=== PATIENT | female | born 1970 | race Caucasian/White ===

== ENCOUNTER → 2018-03-13 | Outpatient (CLI) | payer OTHER ==
[~2018-03-13] MED LIST: CETI10TA84 PO; ETOD400T PO; META1TAB22 PO; OMEP40CA PO; RXC5 PO; ULT50X PO
[2018-03-13 17:45] LABS: BASO % 0.5 %; BASO ABS # 0.03 K/uL (0-0.2); EOS % 2.3 %; EOS ABS # 0.15 K/uL (0-0.5); HEMATOCRIT 42.2 % (37-47); HEMOGLOBIN 14.1 g/dL (12.0-16.0); IG# 0.02 K/uL (0.00-0.02); LYMPH % 36.6 %; LYMPH ABS # 2.34 K/uL (1.2-3.4); MEAN CELL VOLUME 94.6 fL (80-100); MEAN CORPUSCULAR HEMOGLOBIN 31.6 pg (25-34); MEAN CORPUSCULAR HGB CONC 33.4 g/dl (32-36); MEAN PLATELET VOLUME 10.6 fL (7.4-10.4); MONO % 5.3 %; MONO ABS # 0.34 K/uL (0.11-0.59); NEUT ABS # 3.52 K/uL (1.4-6.5); PLATELET COUNT 200 K/uL (130-400); RED CELL DISTRIBUTION WIDTH CV 13.7 % (11.5-14.5); RED CELL DISTRIBUTION WIDTH SD 47.3 fL (36.4-46.3)
[2018-03-13 18:25] LABS: ALBUMIN 3.3 gm/dl (3.4-5.0); ALT/SGPT 42 U/L (12-78); AST/SGOT 37 U/L (15-37); BLOOD UREA NITROGEN 19 mg/dl (7-18); CALCIUM 8.6 mg/dl (8.5-10.1); CARBON DIOXIDE 26 mmol/L (21-32); CHOLESTEROL 213 mg/dl (0-200); CREATININE 0.73 mg/dl (0.60-1.20); GLUCOSE 82 mg/dl (70-99); POTASSIUM 3.4 mmol/L (3.5-5.1); SODIUM 144 mmol/L (136-145)
[2018-03-13 18:27] LABS: ALKALINE PHOSPHATASE 129 U/L (45-117); LDL CHOLESTEROL CALCULATED 126 mg/dl; TOTAL PROTEIN 6.5 gm/dl (6.4-8.2)
== END | disposition home or self-care (01) ==
LOC: C.LABMFLN 11:37
PROVIDERS: ATTEND Family Medicine
DX: D64.9 Anemia, unspecified (principal); E78.5 Hyperlipidemia, unspecified; G71.0 Muscular dystrophy

== ENCOUNTER → 2018-07-09 | Outpatient (CLI) | payer OTHER ==
[2018-07-09 18:15] LABS: ALBUMIN 3.5 gm/dl (3.4-5.0); ALKALINE PHOSPHATASE 101 U/L (45-117); ALT/SGPT 30 U/L (12-78); AST/SGOT 23 U/L (15-37); BLOOD UREA NITROGEN 14 mg/dl (7-18); CALCIUM 9.5 mg/dl (8.5-10.1); CARBON DIOXIDE 29 mmol/L (21-32); CREATININE 0.76 mg/dl (0.60-1.20); GLUCOSE 90 mg/dl (70-99); POTASSIUM 3.7 mmol/L (3.5-5.1); SODIUM 144 mmol/L (136-145); TOTAL PROTEIN 6.5 gm/dl (6.4-8.2)
== END | disposition home or self-care (01) ==
LOC: C.LABMFLN 11:29
PROVIDERS: ATTEND Family Medicine
DX: E87.6 Hypokalemia (principal)

== ENCOUNTER → 2018-07-13 | Outpatient (CLI) | payer OTHER ==
[2018-07-13 17:48] LABS: BASO % 0.4 %; BASO ABS # 0.02 K/uL (0-0.2); EOS % 0.2 %; EOS ABS # 0.01 K/uL (0-0.5); HEMATOCRIT 43.1 % (37-47); IG# 0.01 K/uL (0.00-0.02); LYMPH % 44.4 %; LYMPH ABS # 2.45 K/uL (1.2-3.4); MEAN CELL VOLUME 95.6 fL (80-100); MEAN CORPUSCULAR HGB CONC 32.5 g/dl (32-36); MEAN PLATELET VOLUME 11.4 fL (7.4-10.4); MONO % 0.5 %; MONO ABS # 0.03 K/uL (0.11-0.59); NEUT % 54.3 %; PLATELET COUNT 188 K/uL (130-400); RED CELL DISTRIBUTION WIDTH CV 13.2 % (11.5-14.5); RED CELL DISTRIBUTION WIDTH SD 45.8 fL (36.4-46.3); WHITE BLOOD COUNT 5.52 K/uL (4.8-10.8)
== END | disposition home or self-care (01) ==
LOC: C.LABMFLN 13:50
PROVIDERS: ATTEND Family Medicine
DX: R10.32 Left lower quadrant pain (principal); R00.2 Palpitations

== ENCOUNTER 2023-07-07 07:26 | Observation (INO) ==
--- NOTE | 2023-06-18 13:28 | PAT Medication Instructions ---
Medication Instructions Date of Service June 18, 2023 Home Medications Medication Instructions Recorded electric wheelchair #1 ea 01/14/22 walker with wheels, seat and brakes #1 ea 06/14/22 albuterol sulfate 90 mcg/actuation 2 inh inhalation Q6H PRN shortness 12/31/22 aerosol inhaler (ProAir HFA) of breath or wheezing #18 grams cetirizine 10 mg tablet 10 mg PO QAM #90 tabs 12/31/22 metaxalone 800 mg tablet 800 mg PO TID PRN muscle relaxer 12/31/22 #270 tabs omeprazole 40 mg capsule,delayed 40 mg PO QAM #90 caps 12/31/22 release magnesium 200 mg tablet 300 mg PO Q2D multivitamin 1 tab PO QAM potassium 99 mg tablet 99 mg PO QAM chlorpheniramine maleate 4 mg tablet (ChlorTabs) 4 mg PO Q6H cholecalciferol (vitamin D3) 25 mcg (1,000 unit) capsule 25 mcg PO QAM albuterol sulfate 90 mcg/actuation aerosol inhaler (ProAir HFA) 2 inh inhalation Q6H PRN cetirizine 10 mg tablet 10 mg PO QAM metaxalone 800 mg tablet 800 mg PO TID PRN omeprazole 40 mg capsule,delayed release 40 mg PO QAM celecoxib 200 mg capsule (Celebrex) 200 mg PO QAM ASK your surgeon for instructions celecoxib 200 mg capsule (Celebrex) 200 mg PO QAM DO NOT take the morning of surgery magnesium 200 mg tablet 300 mg PO Q2D multivitamin 1 tab PO QAM potassium 99 mg tablet 99 mg PO QAM chlorpheniramine maleate 4 mg tablet (ChlorTabs) 4 mg PO Q6H cholecalciferol (vitamin D3) 25 mcg (1,000 unit) capsule 25 mcg PO QAM cetirizine 10 mg tablet 10 mg PO QAM metaxalone 800 mg tablet 800 mg PO TID PRN Take morning of surgery With a small sip of water, OTHERWISE NOTHING TO EAT OR DRINK AFTER MIDNIGHT: albuterol sulfate 90 mcg/actuation aerosol inhaler (ProAir HFA) 2 inh inhalation Q6H PRN(use if needed; please bring with you to hospital day of surgery if possible) omeprazole 40 mg capsule,delayed release 40 mg PO QAM Take evening before surgery chlorpheniramine maleate 4 mg tablet (ChlorTabs) 4 mg PO Q6H albuterol sulfate 90 mcg/actuation aerosol inhaler (ProAir HFA) 2 inh inhalation Q6H PRN(if needed) metaxalone 800 mg tablet 800 mg PO TID PRN(if needed) Other Notes If you have any questions please call us at [phone] or [phone] or [phone] or [phone]
--- NOTE | 2023-06-25 12:35 | Anesthesiology Consultation ---
Date of Service June 25, 2023 Assessment & Plan (1) Encounter for pre-operative examination: - COVID screening: Per assessment on 06/25: No known COVID-19 positive contacts or current COVID-19 related symptoms. No recent Covid positive test result. - Cardiology visit (06/25/23): "..history myotonic dystrophy type 1, mosaic Rdz's syndrome, paroxysmal atrial fibrillation, and implantation of a loop recorder who presents to the clinic forpreoperative cardiovascular evaluation prior to cystoscopy, bilateral retrograde pyelogram, bilateral ureteroscopy, laser lithotripsy, stone basketing, possible ureteral dilation and bilateral ureteral stent placement on 07/07/[address] Quintero. She is currently stable and asymptomatic from a cardiovascular standpoint with no anginal symptoms. She has no evidence of CHF or significant valvular abnormality. Her heart rate and blood pressure are currently well controlled. Given this information, patient is at an acceptable risk to proceed with upcoming surgery without any additional cardiovascular testing or intervention." - Myotonic dystrophy, type 1: Patient concerned regarding anesthesia given history of myotonic dystrophy type 1. Indicates that there are specific recommendations to follow d/t this history- wants anesthesiologist flagged. Patient s/p Left ureteroscopy, laser litho (09/14/18): Grade view 2, MAC#3, ETT 7.0, atraumatic at [facility]. No issues noted per post-op anesthesia progress note. - Hypernatremia: Sodium borderline elevated on preop labs 06/25/23 at 146. Per chart review, does have known history of hypernatremia with fluctuating levels (most recent level improved from 04/20/23 which was 148). At anesthesiologist discretion DOS if updated level needed from their perspective. - Patient acceptable risk for given surgery pending evaluation DOS. Chart Review Chart Review: Patient seen in Pre Admission Testing Teaching & Discussion Pre-Anesthesia Teaching/Discussion Notes: Instructed NPO after midnight before surgery,except medications with 15 cc of water. Medication instructions provided according to the PAT guidelines. History Surgery Operation Date: 07/07/23 09:00 Proposed Procedures p Cystoscopy, Ureteronephroscopy, Retrograde Pyelogram, With Possible Ureteral Dilation, Laser Destruction or Extraction of the Stone, Insertion or Exchange of Stent Catheter-Bilateral(Bilateral) - Avery Quintero, DO Height/Weight Height: 5 ft 3 in Weight: 41.3 kg Allergies Allergy/AdvReac Type Severity Reaction Status Date / Time mold Allergy Unverified 06/25/23 09:56 Hay fever Allergy Uncoded 06/25/23 09:56 Medications Home Medications Medication Instructions Recorded Confirmed Last Taken multivitamin 1 tab PO QAM 08/24/18 06/25/23 09/13/18 09:00 potassium 99 mg tablet 99 mg PO QAM 08/24/18 06/25/23 09/13/18 09:00 chlorpheniramine maleate 4 mg 4 mg PO Q6H allergies 08/31/21 06/25/23 Unknown tablet (ChlorTabs) electric wheelchair #1 ea 01/14/22 06/12/23 Unknown walker with wheels, seat and brakes #1 ea 06/14/22 06/12/23 Unknown cholecalciferol (vitamin D3) 25 25 mcg PO QAM 08/30/22 06/25/23 Unknown mcg (1,000 unit) capsule albuterol sulfate 90 mcg/actuation 2 inh inhalation Q6H PRN shortness 12/31/22 06/25/23 Unknown aerosol inhaler (ProAir HFA) of breath or wheezing #18 grams cetirizine 10 mg tablet 10 mg PO QAM #90 tabs 12/31/22 06/25/23 Unknown metaxalone 800 mg tablet 800 mg PO TID PRN muscle relaxer 12/31/22 06/25/23 Unknown #270 tabs omeprazole 40 mg capsule,delayed 40 mg PO QAM #90 caps 12/31/22 06/25/23 Unknown release celecoxib 200 mg capsule (Celebrex) 200 mg PO QAM 06/17/23 06/25/23 Unknown magnesium 200 mg tablet 300 mg PO DIRECTED 06/25/23 06/25/23 Unknown Past Medical History Medical History Asthma First degree atrioventricular block Follows with Dr. Ross/SANDRINE GERD (gastroesophageal reflux disease) Implantable loop recorder present Prior 2020 Kidney stones Migraine Mosaic Rdz syndrome Myotonic dystrophy, type 1 Paroxysmal atrial fibrillation Follows with Dr. Ross/SANDRINE Prolongation of QRS complex on electrocardiography Spinal cord stimulator status Present, patient aware to bring remote DOS Exercise / Class Metabolic Activity III < 4 Walking/Shop/Light housework (walker/cane/wheelchair PRN) Past Family History Family History Father Asthma Aunt Cerebral embolism Migraines Mother Rheumatoid arthritis Other No pertinent family history Past Surgical History Surgical History History of adenoidectomy History of appendectomy History of bilateral tubal ligation History of esophagogastroduodenoscopy (EGD) History of hysterectomy (uterus and cervix only removed) History of lithotripsy Left ureteroscopy, laser litho (09/14/18): Grade view 2, MAC#3, ETT 7.0, atraumatic History of surgery fracture repair of right 3rd finger Hx of abdominal surgery repair of complications from tubal ligation and additional surgery for TYRON Hx of eye surgery repair retinal wrinkle x2 (right eye) S/P cystoscopy with ureteral stent placement Past Anesthesia History No Hx of Anesthesia Complications and No Family Hx of Anesthesia Complications History of PONV No Hx of PONV and Hx of Motion Sickness (occasional) Social History Smoking Status: Former smoker Do You Dip or Chew Tobacco: No Smoking End Date: Quit age 28 Hx Alcohol Use: Yes (maybe once per week) Alcohol type: beer, wine and hard liquor alcohol intake frequency: other Hx Substance Use: Yes substance use type: marijuana (medical card: vape, edibles and tinctures daily) Review of Systems Patient denies chest pain, shortness of breath, fever, chills, cough, wheezing, palpitations. Physical Exam Vital Signs VITALS BP 102/60 P 70 TEMP 98.2 SP02 97%RA RESP 16 PHYSICAL Full cervical extension range of motion. Full TMJ range of motion. TMD 3 finger breaths Mallampati Score 2 Dentition: intact, + crown Lungs: clear throughout to auscultation Cardiac: regular rate and rhythm, no murmurs noted Spine: normal Carotid arteries: negative bruit Extremities: no LE edema Lab Results Anesthesia Preop Results Results Anesthesia Widget: WBC 8.15 K/ul (4.8-10.8) 06/25/23 Hgb 14.2 g/dl (12.0-16.0) 06/25/23 Hct 42.1 % (37.0-47.0) 06/25/23 Plt 205 K/uL (130-400) 06/25/23 Na 146 mmol/L (136-145) H 06/25/23 K 3.5 mmol/L (3.5-5.1) 06/25/23 Cl 108 mmol/L (98-107) H 06/25/23 CO2 30 mmol/L (21-32) 06/25/23 BUN 17 mg/dl (6-23) 06/25/23 Creat 0.61 mg/dl (0.6-1.2) 06/25/23 Glucose Level 89 mg/dl (70-99(Fasting)) 06/25/23 Testing Electrocardiogram Date: 10/25/22 NSR at 65bpm. Moderate voltage criteria for LVH, may be normal variant. Chest X-Ray Date: 04/20/23 No consolidation. Presumed cardiac monitoring device projects over left chest wall. No cardiomegaly. No pleural effusion. No pneumothorax. Echocardiogram Date: 10/24/22 LVEF 55-59%. LV wall motion is normal. No significant valvular disease. Other Testing Loop recorder report Date: 04/11/23 Implantation indiction: palpitations Battery status okay. Presenting rhythm: normal sinus rhythm, Sinus bradycardia. No new arrhythmic events and monitoring period.
[~2023-07-07 07:26] MED LIST changes: -CETI10TA84 PO; -ETOD400T PO; +LACTATED RINGER'S 1,000 ML IV SCH; -META1TAB22 PO; -OMEP40CA PO; -RXC5 PO; -ULT50X PO; +cefTRIAXone SODIUM 1,000 MG in DEXTROSE 5% AD-VAN 50 ML IV SCH
--- NOTE | 2023-07-07 07:42 | History & Physical Bridge Note ---
Date of Service July 07, 2023 History & Physical Bridge Note I have examined the patient, reviewed the History & Physical and in the interval since the performance of the History & Physical I have noted the following changes of clinical significance: no changes noted
[2023-07-07] MEDS ORDERED: fentaNYL citrate PF 100 MCG/2 ML VIAL ONE (08:22)
[2023-07-07] MEDS ORDERED: PROPOFOL IV EMULSION 10 MG/ML 20 ML VIAL IV ONE (08:37)
[2023-07-07] MEDS ORDERED: LIDOCAINE 2% 2 ML VIAL/AMP(20MG/ML) INFIL ONE (08:37)
[2023-07-07] MEDS ORDERED: ONDANSETRON INJ 2 MG/ML 2 ML VIAL ONE (08:37)
[2023-07-07] MEDS ORDERED: ACETAMINOPHEN 1000 MG/100 ML IV IV ONE (08:56)
[2023-07-07] MEDS ORDERED: PHENYLEPHRINE 100MCG/ML 5ML SYR ONE (09:02)
[2023-07-07] MEDS ORDERED: KETOROLAC 30 MG/ML VIAL ONE (09:02)
[2023-07-07] MEDS ORDERED: SUGAMMADEX SODIUM 200 MG/2 ML VIAL IV ONE (09:24)
[2023-07-07] MEDS ORDERED: DIATRIZOATE MEGLUMINE 30% 100ML VIAL INSTIL PRN (09:33)
--- NOTE | 2023-07-07 10:18 | Operative Report ---
PG Post Operative Report Pre & Post Diagnosis Operation Date: 07/07/23 09:20 Pre-Op Diagnosis: Calcium Nephrolithiasis Post-Op Diagnosis: Calcium Nephrolithiasis I identified the patient and participated in the time-out.: Yes Procedure Operation Date: 07/07/23 09:20 Actual Procedures p Cystoscopy with Bilateral Retrograde Pyelogram and bilateral stent placement Right Rigid Ureteronephroscopy with Ureteral Dilation Left Flexible Ureteronephroscopy with Laser Destruction of stone and Basket Extraction of the Stone- Avery Quintero DO Surgeon Avery Quintero, II, DO Intermediate Card Tender None Estimated Blood Loss 1 Findings Consistent with Post-Op Diagnosis Right Narrowed distal ureter with no obvious stone. Dilated Left Very large burden and Extremely hard Stone destroyed to dust and small fragments and larger fragments removed. Specimens Stone Fragments Left Renal Drains 4.8 Fr Multilength Anesthesia Type General Complications none Disposition Disposition: Recovery Room Indications Patient with bothersome stones. Risks and benefits discussed at length. Description of Procedure Patient was consented and brought back to the operating room. Patient was placed under anesthesia in the supine position and moved to the dorsal lithotomy position. Patient was prepped and draped in the regular sterile fashion. A time out was completed. A 30degree Cystoscope was placed into the bladder and the entire bladder was examined. The UO's were identified. The UO was cannulized with a catheter and a retrograde pyelogram was completed. A wire was then placed. Wires were placed bilaterally. On the right a narrowing vs stricture was noted. The left had very large stones throughout the renal pelvis. The Rigid ureteroscope was taken into the right ureter. There was significant narrowing in the distal ureter likely stricture. This was dilated. The scope was then advanced. No stones were found no major obstruction. The scope was able advanced to the proximal ureter/UPJ. No major obstruction or other issues on the right. The area of dilation was inspected. The dilation was successful in opening the ureter without considerable injury or other problems. A retrograde pyelogram was completed through the scope. The wire was maintained. A 4.8 [place] double-J ureteral stent was placed over the wire under direct visualization and confirmed with fluoroscopy. Attention was then taken to the left side. A second wire was placed. A ureteral access sheath was then placed. The flexible ureteroscope was taken into the left ureter. The stone was identified. The stones were large and appeared to be extremely hard. A laser fiber was selected and the stones were pulverized to dust and small fragments. Larger fragments were grasped and removed and sent for analysis. The very large UPJ stone was fully destroyed into fragments and small dust pieces. Larger fragments were sent for analysis. Attention was then taken to the lower pole. Additional large stones were discovered in this area. These were also fractured and dusted. The entire pelvis was examined and the stones were further treated with the laser and basketed for removal. The entire area was once again examined. No residual large fragments or areas of concern were noted. There was a large burden of dust and small debris that had been created due to the large stone burden and very hard stone composition. The scope was slowly removed with the wire left in place. Contrast was placed through the scope for a pyelogram to assist in stent placement. The entire ureter was examined as the scope was slowly removed. No obstructions or other areas of concern were noted. With the wire in place, a 4.8 Fr Double J stent was placed. It was confirmed with fluoroscopy. With the stent in place, the bladder was emptied. The scope was removed. The patient was cleaned, aroused from anesthesia, and transferred to the pacu in stable condition having tolerated the procedure well with no complications. I was present and participated in all aspects of the procedure. The patient will be monitored in the PACU until transferred. We will plan to monitor overnight. We will have patient discharge and likely plan to remove stents in approximately 7 to 10 days. May need further stone treatment on left due to the hard composition and large burden. We will reevaluate likely with imaging after follow-up I attest to the content of the Intraoperative Record and any orders documented therein. Any exceptions are noted below.
[2023-07-07] MEDS ORDERED: fentaNYL citrate PF 100 MCG/2 ML VIAL IV PRN (11:30)
[2023-07-07] MEDS ORDERED: ATROPINE SULFATE 0.1 MG/ML 10ML SYR IV PRN (11:30)
[2023-07-07] MEDS ORDERED: oxyCODONE/ACETAMINOPHEN 5mg/325mg TAB PO PRN (11:30)
[2023-07-07] MEDS ORDERED: ALBUTEROL HFA 8 GM INHALER INH PRN (11:30)
[2023-07-07] MEDS ORDERED: METAXALONE 800 MG TABLET PO PRN (11:30)
[2023-07-07] MEDS ORDERED: NON-FORMULARY MEDICATION (Potassium 99 mg Tablet) PO SCH (11:30)
[2023-07-07] MEDS ORDERED: ONDANSETRON INJ 2 MG/ML 2 ML VIAL IV PRN ×2 (11:30)
--- NOTE | 2023-07-07 12:13 | Fluoroscopy Report ---
INTRAOPERATIVE RADIOGRAPHS CLINICAL HISTORY: Ureteral stent placements. Fluoro time: 19 seconds Ka,r: 2.14 mGy FINDINGS: 8 spot fluoroscopic views of the abdomen are correlated with abdominal CT dated 06/25/2023. C atheters are placed in both ureters. Injected contrast shows no hydronephrosis. A lithotripsy device is advanced on the left. Bilateral ureteral stents are placed and appear appropriately positioned. An electronic device projects over the right upper pelvis. IMPRESSION: Intraoperative images from bilateral ureteral stent placements as above. Electronically signed by: Cheo Clemens M.D. 07/07/2023 12:12 PM
--- NOTE | 2023-07-07 12:30 | Anesthesiology Progress Note ---
Date of Service July 07, 2023 Anesthesia Post Procedure Vital Signs Vital Signs: Temp Pulse Resp BP Pulse Ox O2 Del Method O2 Flow Rate 07/07/23 12:00 57 L 14 118/80 99 Room Air 07/07/23 11:45 58 L 14 116/81 97 Room Air 07/07/23 11:30 58 L 13 117/77 95 Room Air 07/07/23 11:15 54 L 12 119/76 97 Room Air 07/07/23 11:00 55 L 13 129/75 98 Room Air 07/07/23 10:45 54 L 12 124/79 94 Room Air 07/07/23 10:35 36.4 C L 51 L 12 126/76 96 Room Air 07/07/23 10:25 52 L 14 133/81 98 Nasal Cannula 3 07/07/23 10:15 53 L 12 122/83 100 Nasal Cannula 3 07/07/23 10:05 55 L 12 125/78 98 Room Air 07/07/23 09:55 36.2 C L 61 12 146/83 H 100 Room Air 07/07/23 07:58 36.5 C 62 20 126/77 94 Room Air Pain Intensity Generalized: Pain Intensity: 6 Transfer of Care Handoff Completed per policy Notes Mental Status: alert / awake / arousable and participated in evaluation Patient Amnestic to Procedure: Yes Nausea / Vomiting: adequately controlled Pain: adequately controlled Airway Patency, RR, SpO2: stable & adequate BP & HR: stable & adequate Hydration State: stable & adequate Anesthetic Complications: no major complications apparent and Pt Satisfied with anesthetic care
[2023-07-07] MEDS: CeleBREX 200 MG CAP PO SCH (13:14)
[2023-07-07] MEDS: CETIRIZINE HCL 10 MG TABLET PO SCH (13:14)
[2023-07-07] MEDS: CHOLECALCIFEROL 1,000 UNITS 25 MCG TAB PO SCH (13:14)
[2023-07-07] MEDS: D5W AND 1/2NSS + 20MEQ KCL 20 MEQ/1,000 ML BAG IV SCH (13:14)
[2023-07-07] MEDS: DOCUSATE SODIUM 100 MG CAP PO SCH ×2 (13:14→22:09)
[2023-07-07] MEDS: PANTOprazole 40 MG TAB PO SCH (13:14)
[2023-07-07] MEDS: ceFAZolin 2000MG 2,000 MG/15 ML SYR IV SCH ×2 (15:53→22:48)
[2023-07-07] MEDS: PHENAZOPYRIDINE HCL 200 MG TAB PO PRN (16:19)
[2023-07-07] MEDS ORDERED: traMADol HCL 50 MG TABLET PO PRN (16:21)
--- NOTE | 2023-07-07 16:31 | Hospitalist Consultation ---
Date of Consultation July 07, 2023 Assessment & Plan (1) S/P ureteral stent placement: -Pain control, perioperative abx, DVT PPX, and IV fluids per the primary team -Patient is currently stable and non-toxic appearing -Will ask patient's nurse to give her ordered zofran for nausea -Will order am CBC, BMP, and mag for tomorrow, we will follow -Thank you for allowing us to participate in the care of this patient, please reach out with any questions or concerns -Medicine will continue to follow (2) Chronic GERD: -Continue PPI (3) Myotonic dystrophy, type 1: -No sign of respiratory failure or acute weakness after general anesthesia -Continue metaxalone for muscle spasms (4) Atrial fibrillation: -Currently in NSR and rate controlled -Not on anticoagulation or rate/rhythm control outpatient -Continue to monitor for now Plan The patient was discussed with Dr. Camacho at the time of the consult Supervising Physician Co-Signing Physician Notes I personally saw and examined the patient. I verified all hobson points and agree with Pedro Trinidad PA-C with the following exceptions and/or additions: 52 year old female with muscular dystrophy type 1 POD#0 b/l stent placement. Having suprapubic tenderness and nausea post operatively. O/E Generalized muscle wasting present, HS RRR, Chest CTAB, Abdo suprapubic tenderness without rebound tenderness A/P Suprapubic tenderness - suspect from operation but monitor bowel closely. Pain management per primary team. Nausea - continue ondansetron PRN, will give diphenhydramine which she usually takes at night now which may also help with this. Otherwise as above. No respiratory concerns with her muscular dystrophy post anesthesia. History of Present Illness Reason for Consultation: Post-op medical management Requesting Physician: Avery Quintero II, DO Attending Physician: Dr. Roe Camacho History of Present Illness Milvia is a 52-year-old female with a history significant for myotonic dystrophy type 1, mosaic Rdz's syndrome, paroxysmal atrial fibrillation (not on anticoagulation), implantation of a loop recorder, and spinal cord stimulator status who presented to the OR on 07/07 for Cystoscopy with Bilateral Retrograde Pyelogram and bilateral stent placement, Right Rigid Ureteronephroscopy with Ureteral Dilation, Left Flexible Ureteronephroscopy with Laser Destruction of stone and Basket Extraction of the Stone. Per review of the patient's vitals, she has remained stable since arrival. Per the operative report, EBL was listed as 1cc, anesthesia was listed as "General", and there were no reported intraoperative complications. We were consulted for post-operative medical management. At the time of the exam the patient was lying in bed and was in mild distress due to pain and nausea post-op. She states that she is having significant BL flank pain with increased urinary frequency and nausea. I explained that these are likely due to her recent procedure but is otherwise without complaints. She confirms that she took her am dose of metaxalone. She denies recent fever, chills, chest pain, cough, vomiting, and recent trauma. Please refer to Dr. Camacho's attestation for any changes to the treatment plan Allergies Allergy/AdvReac Type Severity Reaction Status Date / Time mold Allergy Unknown Unverified 07/07/23 09:53 Home Medications Medication Instructions Recorded Confirmed Type multivitamin 1 tab PO QAM 08/24/18 06/25/23 History potassium 99 mg tablet 99 mg PO QAM 08/24/18 06/25/23 History chlorpheniramine maleate 4 mg 4 mg PO Q6H allergies 08/31/21 06/25/23 History tablet (ChlorTabs) electric wheelchair #1 ea 01/14/22 06/12/23 Rx walker with wheels, seat and brakes #1 ea 06/14/22 06/12/23 Rx cholecalciferol (vitamin D3) 25 25 mcg PO QAM 08/30/22 06/25/23 History mcg (1,000 unit) capsule albuterol sulfate 90 mcg/actuation 2 inh inhalation Q6H PRN shortness 12/31/22 06/25/23 Rx aerosol inhaler (ProAir HFA) of breath or wheezing #18 grams cetirizine 10 mg tablet 10 mg PO QAM #90 tabs 12/31/22 06/25/23 Rx metaxalone 800 mg tablet 800 mg PO TID PRN muscle relaxer 12/31/22 06/25/23 Rx #270 tabs omeprazole 40 mg capsule,delayed 40 mg PO QAM #90 caps 12/31/22 06/25/23 Rx release celecoxib 200 mg capsule (Celebrex) 200 mg PO QAM 06/17/23 06/25/23 History magnesium 200 mg tablet 300 mg PO DIRECTED 06/25/23 06/25/23 History ciprofloxacin HCl 500 mg tablet 500 mg PO Q12H #6 tabs 07/07/23 Rx (Cipro) oxycodone-acetaminophen 7.5 mg-325 1 tab PO Q8H PRN pain #7 tabs 07/07/23 Rx mg tablet (Percocet) phenazopyridine 200 mg tablet 200 mg PO Q8H PRN pain #10 tabs 07/07/23 Rx (Pyridium) tamsulosin 0.4 mg capsule 0.4 mg PO HS #30 caps 07/07/23 Rx Patient History Medical History Asthma First degree atrioventricular block Follows with Dr. Ross/SANDRINE GERD (gastroesophageal reflux disease) Implantable loop recorder present Prior 2020 Kidney stones Migraine Mosaic Rdz syndrome Myotonic dystrophy, type 1 Paroxysmal atrial fibrillation Follows with Dr. Ross/SANDRINE Prolongation of QRS complex on electrocardiography Spinal cord stimulator status Present, patient aware to bring remote DOS Surgical History History of adenoidectomy History of appendectomy History of bilateral tubal ligation History of esophagogastroduodenoscopy (EGD) History of hysterectomy (uterus and cervix only removed) History of lithotripsy Left ureteroscopy, laser litho (09/14/18): Grade view 2, MAC#3, ETT 7.0, atraumatic History of surgery fracture repair of right 3rd finger Hx of abdominal surgery repair of complications from tubal ligation and additional surgery for TYRON Hx of eye surgery repair retinal wrinkle x2 (right eye) S/P cystoscopy with ureteral stent placement Family History Father Asthma Aunt Cerebral embolism Migraines Mother Rheumatoid arthritis Other No pertinent family history Social History Smoking Status: Never smoker Smoking End Date: Quit age 28; Second Hand Exposure: Yes (hx); Do You Dip or Chew Tobacco: No; Tobacco Cessation Education Requested by Patient: No Hx Alcohol Use: Yes Alcohol type: beer, wine and hard liquor Hx Substance Use: Yes (MMJ) Last Used Substance: Days (ago) Substance Use Type Other:: medical mmj used last 2199 Preferred Language: Chinese Communication Ability: Effective Visual Impairment: No Limitations Oim Consultant Required: No Beliefs That Will Affect Care: None Current Living Situation: Alone Other Information That Helps Us Care for You: No Feels Safe at Home: Yes Safety Concerns: Feels Safe At This Time Assistive Devices: Cane, Glasses, Walker and Wheelchair Assistive Devices Comment: glasses prn Physical Exam Physical Exam: Physical Exam: General: In no acute distress, stated age, chronically ill appearing but non- toxic HEENT: Normocephalic, atraumatic, no scleral icterus, pupils around round, symmetrical, and reactive to light, moist mucus membranes, trachea midline, no thyromegaly Chest/Pulm: No respiratory distress, symmetrical chest expansion, clear breath sounds throughout Cardiac: RRR, no murmurs noted Abdomen: Negative for ascites and bruising, normoactive bowel sounds, soft, non-tender to palpation throughout Musculoskeletal: chronic muscle atrophy and BL UE muscles spasms noted, no acute trauma Extremities: Radial, dorsalis pedis, and posterior tibial pulses are intact and symmetrical, no edema noted in the BL LE's Skin: Warm, dry, no rashes , lesions, or scars noted Neuro: Alert and oriented to person, place, month, year, and president, no tremors noted Psych: mild distress due to pain/nausea, calm and cooperative during the exam Results & Data Results & Data Vital Signs (Past 12 Hours) Vital Signs Temp Pulse Pulse Resp BP Pulse Ox O2 Del Method 07/07/23 13:56 76 07/07/23 15:49 68 07/07/23 13:56 76 07/07/23 13:35 Room Air 07/07/23 13:35 36.8 C 68 16 117/80 96 Room Air 07/07/23 13:00 80 17 119/79 97 Room Air 07/07/23 12:30 65 15 114/76 95 Room Air 07/07/23 12:00 57 L 14 118/80 99 Room Air 07/07/23 11:45 58 L 14 116/81 97 Room Air 07/07/23 11:30 58 L 13 117/77 95 Room Air 07/07/23 11:15 54 L 12 119/76 97 Room Air 07/07/23 11:00 55 L 13 129/75 98 Room Air 07/07/23 10:45 54 L 12 124/79 94 Room Air 07/07/23 10:35 36.4 C L 51 L 12 126/76 96 Room Air 07/07/23 10:25 52 L 14 133/81 98 Nasal Cannula 07/07/23 10:15 53 L 12 122/83 100 Nasal Cannula 07/07/23 10:05 55 L 12 125/78 98 Room Air 07/07/23 09:55 36.2 C L 61 12 146/83 H 100 Room Air 07/07/23 07:58 36.5 C 62 20 126/77 94 Room Air O2 Flow Rate 07/07/23 13:56 07/07/23 15:49 07/07/23 13:56 07/07/23 13:35 07/07/23 13:35 07/07/23 13:00 07/07/23 12:30 07/07/23 12:00 07/07/23 11:45 07/07/23 11:30 07/07/23 11:15 07/07/23 11:00 07/07/23 10:45 07/07/23 10:35 07/07/23 10:25 3 07/07/23 10:15 3 07/07/23 10:05 07/07/23 09:55 07/07/23 07:58 Diagnostic Findings Retrograde Pyelogram 07/07/23 09:20 INTRAOPERATIVE RADIOGRAPHS CLINICAL HISTORY: Ureteral stent placements. Fluoro time: 19 seconds Ka,r: 2.14 mGy FINDINGS: 8 spot fluoroscopic views of the abdomen are correlated with abdominal CT dated 06/25/2023. Catheters are placed in both ureters. Injected contrast shows no hydronephrosis. A lithotripsy device is advanced on the left. Bilateral ureteral stents are placed and appear appropriately positioned. An electronic device projects over the right upper pelvis. IMPRESSION: Intraoperative images from bilateral ureteral stent placements as above. Electronically signed by: Cheo Clemens M.D. 07/07/2023 12:12 PM PG Care Time/CCT Total # of Minutes Spent Total Time Spent with Patient: Total time spent is greater than 50% in coordination of care (as documented) at patient's floor/unit and/or counseling patient: Coding [place] [address] IN/OBS CONSULT LVL 4,60M Patient Type Established Medical Decision Making High Complexity Diagnoses S/P ureteral stent placement Z96.0 Chronic GERD K21.9 Myotonic dystrophy, type 1 G71.11 Atrial fibrillation I48.91
[2023-07-07] MEDS ORDERED: ONDANSETRON INJ 2 MG/ML 2 ML VIAL IV ONE (19:12)
[2023-07-07] MEDS: KETOROLAC TROMETHAMINE 15 MG/ML VIAL IV PRN (19:29)
[2023-07-07] MEDS ORDERED: diphenhydrAMINE Capsule 25 MG CAP PO PRN (21:28)
[2023-07-07] MEDS ORDERED: diphenhydrAMINE Capsule 25 MG CAP PO ONE (21:50)
[2023-07-08] MEDS: KETOROLAC TROMETHAMINE 15 MG/ML VIAL IV PRN ×3 (03:22→19:50)
[2023-07-08] MEDS: D5W AND 1/2NSS + 20MEQ KCL 20 MEQ/1,000 ML BAG IV SCH ×2 (03:47→17:57)
[2023-07-08] MEDS: ceFAZolin 2000MG 2,000 MG/15 ML SYR IV SCH (05:23)
[2023-07-08 07:16] LABS: Calcium 9.2 mg/dl (8.6-10.3); Magnesium 1.9 mg/dl (1.7-2.4); Potassium 4.2 mmol/L (3.5-5.1)
[2023-07-08 07:21] LABS: BUN Creatinine Ratio 12.2 (10-20); Creatinine Clr Calc Pharmacy 45.6 ml/min; Est GFR (African American) 84.6 ml/min
[2023-07-08 08:38] LABS: Basophils # (auto) 0.01 K/uL (0-0.2); Basophils % (auto) 0.2 %; Eosinophils # (auto) 0.05 K/uL (0-0.50); Eosinophils % (auto) 0.9 %; Hematocrit (blood only) 34.8 % (37.0-47.0); Hemoglobin 11.6 g/dl (12.0-16.0); Immature Granulocytes # (auto) 0.02 K/uL (0.01-0.20); Immature Granulocytes % (auto) 0.4 %; Lymphocytes # (auto) 1.68 K/uL (1.2-3.4); Lymphocytes % (auto) 30.1 %; Mean Corpuscular Hemoglobin 31.2 pg (25.0-34.0); Mean Corpuscular Hgb Conc 33.3 g/dL (32.0-36.0); Mean Corpuscular Volume 93.5 fL (80.0-100.0); Mean Platelet Volume 11.5 fL (9.4-12.4); Monocytes # (auto) 0.39 K/uL (0.11-0.59); Neutrophils # (auto) 3.44 K/uL (1.40-6.50); Neutrophils % (auto) 61.4 %; Platelet Count 135 K/uL (130-400); RDW Coefficient of Variation 13.8 % (11.5-14.5); RDW Standard Deviation 47.1 fL (36.4-46.3); Red Blood Count 3.72 M/uL (4.20-5.40); White Blood Count 5.59 K/ul (4.8-10.8)
[2023-07-08] MEDS: CeleBREX 200 MG CAP PO SCH (08:57)
[2023-07-08] MEDS: CHOLECALCIFEROL 1,000 UNITS 25 MCG TAB PO SCH (08:58)
[2023-07-08] MEDS: PANTOprazole 40 MG TAB PO SCH (08:58)
[2023-07-08] MEDS: CETIRIZINE HCL 10 MG TABLET PO SCH (08:58)
[2023-07-08] MEDS: DOCUSATE SODIUM 100 MG CAP PO SCH ×2 (09:01→19:55)
--- NOTE | 2023-07-08 10:40 | Urology Progress Note ---
Date of Service July 08, 2023 Assessment & Plan (1) Renal calculi: (2) S/P ureteral stent placement: Plan - POD #1 s/p Cystoscopy with Bilateral Retrograde Pyelogram and bilateral stent placement, Right Rigid Ureteronephroscopy with Ureteral Dilation, Left Flexible Ureteronephroscopy with Laser Destruction of stone and Basket Extraction of the Stone with Dr. Quintero. -Admitted to urology service postoperatively. -Medicine consulted postoperatively for medical management, appreciate assistance. -Has had some suprapubic discomfort and nausea, managing with IV medication. -Remains afebrile and hemodynamically stable. -Labs today show a white count 5.59, hemoglobin 11.6, and creatinine 0.90. -Voiding spontaneously, continue to monitor. Bladder scan prn. -Continue supportive care and pain management. -Encourage ambulation. -Anticipate discharge to home later today or tomorrow pending patient progression. Admission and Anticipated Discharge Date Admission Date: July 07, 2023 Subjective Patient examined at bedside this AM. Awake, resting in bed on arrival. No acute distress. Reports lower abdominal cramping and nausea, had IV Toradol and Zofran which helped. Voiding spontaneously, some urgency frequency today and incontinence. Feels she is emptying her bladder well. Denies fevers or chills. Some mild nausea, no vomiting. Tolerating diet. Ambulating without issue. She is concerned about going home today and does not feel ready. She lives alone. Review of Systems Constitutional: as per Subjective / HPI Gastrointestinal: as per Subjective / HPI Genitourinary: as per Subjective / HPI Physical Exam Constitutional: no acute distress Chronically ill-appearing Respiratory: no respiratory distress and no labored breathing Skin: No visible rashes or lesions to exposed skin areas Neurologic: moves all extremities and awake Psychiatric: A+Ox3, euthymic affect Results & Data Vital Signs (Past 12 Hours) Vital Signs Temp Pulse Pulse Resp BP Pulse Ox O2 Del Method 07/08/23 07:48 36.6 C 54 L 16 116/78 97 Room Air 07/08/23 07:44 58 L 07/08/23 00:00 64 07/08/23 03:36 36.7 C 62 18 122/81 96 Room Air 07/07/23 23:26 36.7 C 57 L 18 118/76 96 Room Air PG Care Time/CCT Total # of Minutes Spent Total Time Spent with Patient: Total time spent is greater than 50% in coordination of care (as documented) at patient's floor/unit and/or counseling patient: Coding Level of Care Code 86789 SUB INP/OBS CARE 2MIN Diagnoses Renal calculi N20.0 S/P ureteral stent placement Z96.0
--- NOTE | 2023-07-08 15:08 | Hospitalist Progress Note ---
Date of Service July 08, 2023 Assessment & Plan (1) S/P ureteral stent placement: Plan: Bilateral stents placed yesterday, July 07, by urology. Postoperative day #1. She also had laser treatment and stone extraction on the left side. (2) Chronic GERD: Plan: Stable. Continue PPI (3) Myotonic dystrophy, type 1: Plan: Supportive care. Stable. No sign of respiratory failure or acute weakness after general anesthesia. Continue metaxalone for muscle spasms (4) Atrial fibrillation: Plan: Currently in NSR and rate controlled. Not on systemic anticoagulation. Telemetry Plan Probable discharge to home tomorrowJuly 09 Admission and Anticipated Discharge Date Admission Date: July 07, 2023 Subjective Alert and oriented. Medically stable. Urology entry noted. Probably home tomorrowJuly 09 Review of Systems Review of Systems: Constitutional-no fever or chills ENT-no blurred vision, no double vision, no epistaxis, no sore throat Respiratory-no cough, no wheezing, no shortness of breath Cardiac-no palpitations, no chest pain, no syncope GI-no nausea, vomiting, diarrhea, melena, hematochezia -no urinary retention, no urinary incontinence, no dysuria, no hematuria Musculoskeletal-no joint pain, no muscle tenderness Skin-no bruising, no rashes, no pruritus Neuro-no isolated weakness, no paresthesia, no weakness Psych-no depression, no anxiety Physical Exam Physical Exam: General-alert and oriented x3, no fevers, no chills HEENT-head atraumatic and normocephalic, TMs intact bilaterally, pupils equal and reactive to light, extraocular muscles intact Neck-no lymphadenopathy or thyromegaly, trachea midline Chest-clear to auscultation percussion. No rales wheezing or rhonchi Cardiac-regular rate and rhythm, normal S1 and S2, no murmurs Abdomen-normal bowel sounds, nontender, no hepatosplenomegaly Extremities-no cyanosis, clubbing, or edema Neuro-cranial nerves II through XII intact, myotonic dystrophy Psych-normal affect, normal mood Results & Data Results & Data Vital Signs (Past 12 Hours) Vital Signs Temp Pulse Pulse Resp BP Pulse Ox O2 Del Method 07/08/23 11:38 37.0 C 87 19 106/73 97 Room Air 07/08/23 07:48 36.6 C 54 L 16 116/78 97 Room Air 07/08/23 07:44 58 L 07/08/23 03:36 36.7 C 62 18 122/81 96 Room Air Laboratory Results 07/08/23 08:08 07/08/23 05:48 PG Care Time/CCT Total # of Minutes Spent Total Time Spent with Patient: Total time spent is greater than 50% in coordination of care (as documented) at patient's floor/unit and/or counseling patient: Coding Level of Care Code 54838 SUB INP/OBS CARE 2/35MIN Diagnoses S/P ureteral stent placement Z96.0 Chronic GERD K21.9 Myotonic dystrophy, type 1 G71.11 Atrial fibrillation I48.91
[2023-07-08] MEDS ORDERED: diphenhydrAMINE Capsule 25 MG CAP PO PRN (21:00)
[2023-07-09] MEDS: PHENAZOPYRIDINE HCL 200 MG TAB PO PRN (01:34)
[2023-07-09] MEDS: D5W AND 1/2NSS + 20MEQ KCL 20 MEQ/1,000 ML BAG IV SCH (04:11)
[2023-07-09] MEDS: KETOROLAC TROMETHAMINE 15 MG/ML VIAL IV PRN ×2 (04:12→12:52)
[2023-07-09] MEDS: PANTOprazole 40 MG TAB PO SCH (07:27)
[2023-07-09] MEDS: CHOLECALCIFEROL 1,000 UNITS 25 MCG TAB PO SCH (07:27)
[2023-07-09] MEDS: CETIRIZINE HCL 10 MG TABLET PO SCH (07:27)
[2023-07-09] MEDS: DOCUSATE SODIUM 100 MG CAP PO SCH (07:27)
[2023-07-09] MEDS: CeleBREX 200 MG CAP PO SCH (07:30)
--- NOTE | 2023-07-09 10:18 | Urology Progress Note ---
Date of Service July 09, 2023 Assessment & Plan (1) Renal calculi: (2) S/P ureteral stent placement: Plan - POD #2 s/p Cystoscopy with Bilateral Retrograde Pyelogram and bilateral stent placement, Right Rigid Ureteronephroscopy with Ureteral Dilation, Left Flexible Ureteronephroscopy with Laser Destruction of stone and Basket Extraction of the Stone with Dr. Quintero. -Admitted to urology service postoperatively. -Medicine consulted postoperatively for medical management, appreciate assistance. -Remains afebrile and hemodynamically stable. -Labs 07/08- white count 5.59, hemoglobin 11.6, and creatinine 0.90. -Voiding spontaneously, continue to monitor. Bladder scan prn. -Tolerating diet. -Ambulating without issue. -Still with suprapubic discomfort likely d/t stents, manageable with medication. -Hospital medicine note reviewed- Pt is medically stable for d/c home today. -Plan to follow-up with urology outpatient as scheduled 07/15. -Discharge instructions reviewed, all questions were answered. -Stable for discharge to home today. Plan of care reviewed with Dr. Quintero. Admission and Anticipated Discharge Date Admission Date: July 07, 2023 Subjective Patient examined at bedside this AM. Awake, resting in bed on arrival. No acute issues overnight. Still with some lower abd cramping, managing with pain medication. Voiding spontaneously, some urgency frequency. Feels she is emptying her bladder well. Denies fevers, chills, nausea, vomiting. Tolerating diet. Ambulating without issue. Review of Systems Constitutional: as per Subjective / HPI Gastrointestinal: as per Subjective / HPI Genitourinary: as per Subjective / HPI Physical Exam Constitutional: no acute distress Chronically ill-appearing Respiratory: no respiratory distress and no labored breathing Skin: No visible rashes or lesions to exposed skin areas Neurologic: moves all extremities and awake Psychiatric: A+Ox3, euthymic affect Results & Data Vital Signs (Past 12 Hours) Vital Signs Temp Pulse Pulse Resp BP BP Pulse Ox 07/09/23 07:54 36.5 C 63 18 109/74 97 07/09/23 04:44 36.7 C 72 20 107/73 94 07/08/23 23:00 36.8 C 72 20 115/75 92 07/09/23 00:28 67 O2 Del Method 07/09/23 07:54 Room Air 07/09/23 04:44 Room Air 07/08/23 23:00 Room Air 07/09/23 00:28 PG Care Time/CCT Total # of Minutes Spent Total Time Spent with Patient: Total time spent is greater than 50% in coordination of care (as documented) at patient's floor/unit and/or counseling patient: Coding Level of Care Code 99966 SUB INP/OBS CARE 2/35MIN Diagnoses Renal calculi N20.0 S/P ureteral stent placement Z96.0
--- NOTE | 2023-07-09 10:40 | Hospitalist Progress Note ---
Date of Service July 09, 2023 Assessment & Plan (1) S/P ureteral stent placement: Plan: Bilateral stents placed on July 07, by urology. Postoperative day #2. She also had laser treatment and stone extraction on the left side. (2) Chronic GERD: Plan: Stable. Continue PPI (3) Myotonic dystrophy, type 1: Plan: Supportive care. Stable. No sign of respiratory failure or acute weakness after general anesthesia. Continue metaxalone for muscle spasms (4) Atrial fibrillation: Plan: Currently in NSR and rate controlled. Not on systemic anticoagulation. T elemetry Plan Medically stable for discharge home per primary service today, July 09 Admission and Anticipated Discharge Date Admission Date: July 07, 2023 Subjective Alert and oriented. Medically stable. Review of Systems Review of Systems: Constitutional-no fever or chills ENT-no blurred vision, no double vision, no epistaxis, no sore throat Respiratory-no cough, no wheezing, no shortness of breath Cardiac-no palpitations, no chest pain, no syncope GI-no nausea, vomiting, diarrhea, melena, hematochezia -no urinary retention, no urinary incontinence, no dysuria, no hematuria Musculoskeletal-no joint pain, no muscle tenderness Skin-no bruising, no rashes, no pruritus Neuro-no isolated weakness, no paresthesia, no weakness Psych-no depression, no anxiety Physical Exam Physical Exam: General-alert and oriented x3, no fevers, no chills HEENT-head atraumatic and normocephalic, TMs intact bilaterally, pupils equal an d reactive to light, extraocular muscles intact Neck-no lymphadenopathy or thyromegaly, trachea midline Chest-clear to auscultation percussion. No rales wheezing or rhonchi Cardiac-regular rate and rhythm, normal S1 and S2, no murmurs Abdomen-normal bowel sounds, nontender, no hepatosplenomegaly Extremities-no cyanosis, clubbing, or edema Neuro-cranial nerves II through XII intact, myotonic dystrophy Psych-normal affect, normal mood Results & Data Results & Data Vital Signs (Past 12 Hours) Vital Signs Temp Pulse Pulse Resp BP BP Pulse Ox 07/09/23 07:54 36.5 C 63 18 109/74 97 07/09/23 04:44 36.7 C 72 20 107/73 94 07/08/23 23:00 36.8 C 72 20 115/75 92 07/09/23 00:28 67 O2 Del Method 07/09/23 07:54 Room Air 07/09/23 04:44 Room Air 07/08/23 23:00 Room Air 07/09/23 00:28 Laboratory Results 07/08/23 08:08 07/08/23 05:48 PG Care Time/CCT Total # of Minutes Spent Total Time Spent with Patient: Total time spent is greater than 50% in coordination of care (as documented) at patient's floor/unit and/or counseling patient: Coding Level of Care Code 86342 SUB INP/OBS CARE 2/35MIN Diagnoses S/P ureteral stent placement Z96.0 Chronic GERD K21.9 Myotonic dystrophy, type 1 G71.11 Atrial fibrillation I48.91
--- NOTE | 2023-07-09 12:36 | Discharge Summary ---
Date of Service July 09, 2023 Admission HPI Per Admitting Provider 52-year-old female with bilateral stones who presented for cystoscopy, ureteroscopy, bilateral stone treatment and stent placement Dr. Quintero Admission Exam Per Admitting Provider General: thin, well-appearing, no acute distress HEENT: Normocephalic, mucous membranes moist Pulmonary: Nonlabored respirations Abdomen: Nondistended Extremities: Moves all 4 spontaneously Neuro: No gross deficits, ataxic gait Psych: alert and oriented, normal mood Skin: Warm, dry, no rashes noted Principal Diagnosis Calcium nephrolithiasis Discharge Exam Constitutional no acute distress Thin, chronically ill-appearing Respiratory no respiratory distress and no labored breathing Neurologic moves all extremities and awake Psychiatric A+Ox3, euthymic affect Discharge Data Allergies Allergy/AdvReac Type Severity Reaction Status Date / Time mold Allergy Unknown Unverified 07/07/23 09:53 Consultations 07/07/23 11:30 Consult Hospitalist Routine Procedures Performed Operation Date: 07/07/23 09:20 Actual Procedures p Cystoscopy, Bilateral Ureteronephroscopy, Bilateral Retrograde Pyelogram, With Right Ureteral Dilation, Left Laser Destruction and Extraction of the Stone, Insertion of Stent Catheter-Bilateral(Bilateral) - Avery Quintero, DO Ordered Studies 07/07/23 09:20 FL retrograde includes kub Routine Hospital Course (1) Renal calculi: (2) S/P ureteral stent placement: Plan 52-year-old female admitted s/p Cystoscopy with Bilateral Retrograde Pyelogram and bilateral stent placement, Right Rigid Ureteronephroscopy with Ureteral Dilation, Left Flexible Ureteronephroscopy with Laser Destruction of stone and Basket Extraction of the Stone with Dr. Quintero. -Admitted to urology service postoperatively. -Medicine consulted postoperatively for medical management, appreciate assistance. -Remains afebrile and hemodynamically stable. -Labs 07/08- white count 5.59, hemoglobin 11.6, and creatinine 0.90. -Voiding spontaneously, continue to monitor. Bladder scan prn. -Tolerating diet. -Ambulating without issue. -Still with suprapubic discomfort likely d/t stents, manageable with medication. -Hospital medicine note reviewed- Pt is medically stable for d/c home today 07/09. -Plan to follow-up with urology outpatient as scheduled 07/15. -Discharge instructions reviewed, all questions were answered. -Stable for discharge to home today. Plan of care reviewed with Dr. Quintero. Total Time Total Time Spent Total Time Spent (In Minutes): 15 Discharge Plan Discharge Items Patient Disposition: Home - Self-Care Reason For Visit: Calcium Nephrolithiasis Discharge Diagnosis: Same Activity: Resume your previous activity Lifting: No more than 50 pounds Non-emergency contact: Surgeon and Urologist Call non-emergency contact if: you have any medication questions, your symptoms worsen, your pain is not controlled, your pain is worsening, your pain is unusual for you, your pain is concerning for you, you have a fever and your temperature is above 101.5 Follow-up/Referrals: Avery Quintero DO [Physician] - 07/15/23 2:00 pm Ayaan Jules DO [Primary Care Provider] - Diet: Regular Addtl Attending Provider Instructions: Please take all medications as prescribed and keep all follow-ups as scheduled. Please call the urology office at [phone] with any questions, concerns or need to reschedule appointments for any reason. We are happy to assist you. While you have a ureteral stent in place: Some discomfort is normal. Certain movements may trigger pain or a feeling that you need to urinate. You may also feel mild soreness or pressure before or during urination. These symptoms should go away a few days after the stent is removed. Your urine may be slightly pink or red. This is due to bleeding caused by minor irritation from the stent. This may happen on and off while you have the stent, it is not harmful and is to be expected. Medication to help minimize discomfort or bladder spasms, or to prevent infection may be prescribed. Take this as directed. Drink plenty of fluids to help flush out your urinary tract. When to call [facility] at [phone]: Your urine contains heavy blood clots or you are unable to urinate You are constantly leaking urine Fever of 101F or higher, chills, nausea, or vomiting Your pain is not relieved with medication The end of the stent comes out of your urethra Pending Studies at Discharge: No Stand-Alone Forms: My [facility] Medications and DC Order Prescriptions: New phenazopyridine [Pyridium] 200 mg tablet 200 mg PO Q8H PRN (Reason: pain) Qty: 10 0RF ciprofloxacin HCl [Cipro] 500 mg tablet 500 mg PO Q12H Qty: 6 0RF tamsulosin 0.4 mg capsule 0.4 mg PO HS Qty: 30 0RF oxycodone-acetaminophen [Percocet] 7.5-325 mg tablet 1 tab PO Q8H PRN (Reason: pain) Qty: 7 0RF Continued (DME) electric wheelchair See Rx Instructions .Route .MEDSUPPLY Qty: 1 0RF Rx Instructions: As directed she would like a folding electric wheelchair albuterol sulfate [ProAir HFA] 90 mcg/actuation HFA aerosol inhaler 2 inh INH Q6H PRN (Reason: shortness of breath or wheezing) Qty: 18 3RF cetirizine 10 mg tablet 10 mg PO QAM Qty: 90 3RF metaxalone 800 mg tablet 800 mg PO TID PRN (Reason: muscle relaxer) Qty: 270 0RF Patient Comments: takes one every morning, the rest are as needed omeprazole 40 mg capsule,delayed release(DR/EC) 40 mg PO QAM Qty: 90 3RF cholecalciferol (vitamin D3) 25 mcg (1,000 unit) capsule 25 mcg PO QAM (DME) walker with wheels, seat and brakes See Rx Instructions .Route .MEDSUPPLY Qty: 1 0RF Rx Instructions: As directed multivitamin Tablet 1 tab PO QAM potassium 99 mg Tablet 99 mg PO QAM chlorpheniramine maleate [ChlorTabs] 4 mg tablet 4 mg PO Q6H magnesium 200 mg tablet 300 mg PO DIRECTED celecoxib [Celebrex] 200 mg capsule 200 mg PO QAM Discharge Orders: Discharge Order (Routine); Ordered 07/09/23 Ordered By: Tianna Chambers Admission Data Admit Date/Time: 07/07/23 07:58 Attending Provider: Avery Quintero Admit Provider: Avery Quintero Primary Care Provider: Ayaan Jules Other Providers: Juan Luis Fernandez ; Tianna Pulliam ; Roe Fabian ; Refugio Lr ; Denzel Amaro ; Cheo Jordan ; Sheeba Guardado ; Janice Brennan ; Nic Flores ; Deepika Wetzel ; Sergo Hernández ; Candis Fierro ; Pedro Trinidad ; Jose Pearl ; Tianna Ramirez ; Ling Gonzalez ; Pierre Rose ; Roe Camacho ; Jimmy Silva ; Verenice Chavez ; Tam Guzmán ; Patricia Navarro ; Gerardo Ziegler ; Ankur Carrasco ; Jerrica Huff ; Jaimee Connor ; Gustavo Carmichael ; Milvia Mcdowell ; Nahed Valdez ; Isiah Morgan ; Refugio Orellana Other Interventions: Discharge Summary Assessment (RN) Last Done: 07/09/23 12:43 Coding Level of Care Code 83075 IN/OBS DISCH 30 MIN/LESS Diagnoses Renal calculi N20.0 S/P ureteral stent placement Z96.0
== END 2023-07-09 15:30 | disposition home or self-care (01) ==
LOC: ASU 07:26 → PACUINP 07:26 → 2N 13:37